=== PATIENT | female | born 1955 | race Asian ===

== ENCOUNTER 2023-04-06 13:22 | Inpatient (IN) | payer BC, MEDICAID, OTHER ==
[~2023-04-06] VITALS: Ht 160 cm; Wt 121.1 kg
[2023-04-06 13:35] VITALS: BP_SYST 139; PULSE 70; RESP 20; TEMP 98.6; O2SAT 95
[2023-04-06] MEDS ORDERED: predniSONE 20 MG TABLET PO ONE (14:00)
[2023-04-06] MEDS ORDERED: IPRATROPIUM/ALBUTEROL SULFATE 3 ML AMPUL.NEB (DUONEB) INH ONE (14:00)
[2023-04-06 14:20] LABS: ABG O2 SAT% ESTIMATE 96.9 % (94.0-100.0); BLOOD GAS BASE EXCESS 3.7 mmol/L (-3.0-3.0); BLOOD GAS PH 7.316 (7.350-7.450); BLOOD GAS PO2 100.6 mmHg (75.0-100.0)
[2023-04-06 14:50] LABS: BASOPHILS % (AUTO) 0.7 % (0.0-2.0); EOSINOPHILS # (AUTO) 0.2 K/uL (0.0-0.4); EOSINOPHILS % (AUTO) 5.1 % (0.0-4.0); HEMATOCRIT 34.4 % (36-48); HEMOGLOBIN 10.6 g/dL (12.0-16.0); LYMPHOCYTES # (AUTO) 0.8 K/uL (1.0-5.5); LYMPHOCYTES % (AUTO) 18.5 % (20.5-51.5); MEAN CORPUSCULAR HEMOGLOBIN 30 pg (27-31); MEAN CORPUSCULAR HGB CONC 31 % (32-36); MEAN CORPUSCULAR VOLUME 98 fL (79.0-98.0); MONOCYTES # (AUTO) 0.3 K/uL (0.0-1.0); MONOCYTES % (AUTO) 6.6 % (1.7-9.3); NEUTROPHILS # (AUTO) 3.1 K/uL (1.8-7.7); NEUTROPHILS % (AUTO) 69.1 % (40.0-70.0); PLATELET COUNT (AUTO) 195 K/uL (130-430); RED CELL DISTRIBUTION WIDTH 16.1 % (9.0-15.0); WHITE BLOOD COUNT (AUTO) 4.5 K/uL (4.8-10.8)
[2023-04-06 14:56] LABS: ALLEN'S TEST POSITIVE (P); BLOOD GAS PCO2 64.1 mmHg (35.0-45.0)
[2023-04-06 14:58] LABS: ALANINE AMINOTRANSFERASE 11 U/L (12-78); ALBUMIN 3.1 g/dL (3.4-4.8); ANION GAP 4 (5-15); ASPARTATE AMINOTRANSFERASE 14 U/L (10-37); CALCIUM 8.8 mg/dL (8.4-11.0); CARBON DIOXIDE 31 mmol/L (23-29); CHLORIDE 107 mmol/L (98-107); GFR AFRICAN AMERICAN 91 mL/min (>90); GLUCOSE 96 mg/dL (74-106); POTASSIUM 3.5 mmol/L (3.5-5.1); SODIUM SERUM 142 mmol/L (136-145); TOTAL BILIRUBIN 0.4 mg/dL (0.0-1.0); TOTAL PROTEIN, SERUM 6.2 g/dL (6.4-8.3); UREA NITROGEN, BLOOD 7 mg/dL (8-21)
[2023-04-06 15:01] LABS: BILIRUBIN,DIRECT 0.1 mg/dL (0.0-0.3)
[2023-04-06 15:08] LABS: GFR NON AFRICAN-AMERICAN 76 mL/min (>90)
[2023-04-06] MEDS ORDERED: AZITHROMYCIN 500 MG in NS 250 ML IV ONE (15:45)
[2023-04-06] MEDS ORDERED: cefTRIAXone 1 GM in D5W 50 ML IV ONE (15:45)
[2023-04-06 16:06] LABS: INFLUENZA TYPE A Negative (NEGATIVE); INFLUENZA TYPE B NEGATIVE (NEGATIVE)
[2023-04-06] MEDS ORDERED: cefTRIAXone 1 GM VIAL ONE (16:39)
[2023-04-06] MEDS ORDERED: AZITHROMYCIN 500 MG/VIAL (ZITHROMAX) IV ONE (17:01)
[2023-04-06] MEDS ORDERED: ALBMDI INH (17:30)
[2023-04-06] MEDS ORDERED: BECL10.62 INH (17:30)
[2023-04-06] MEDS ORDERED: LEVO200C2 PO (17:36)
[2023-04-06] MEDS ORDERED: ZOLPIDEM TARTRATE 5 MG TABLET PO PRN (18:30)
[2023-04-06] MEDS ORDERED: MORPHINE 2 MG/ML INJ. SYRINGE IVP PRN ×2 (18:30)
[2023-04-06] MEDS ORDERED: ONDANSETRON HCL 4 MG/2 ML VIAL IVP PRN (18:30)
[2023-04-06] MEDS ORDERED: LORazepam 2 MG/ML VIAL IVP PRN (18:30)
[2023-04-06] MEDS ORDERED: MAGNESIUM SULFATE 50 ML IV PRN (18:30)
[2023-04-06] MEDS ORDERED: DOCUSATE SODIUM 100 MG CAPSULE PO PRN (18:30)
[2023-04-06] MEDS ORDERED: ACETAMINOPHEN 500 MG TABLET PO PRN ×3 (18:30)
[2023-04-06] MEDS ORDERED: MUPIROCIN 2% TOPICAL OINTMENT 22 GM NS PRN (18:30)
[2023-04-06] MEDS ORDERED: POTASSIUM CHLORIDE 20 MEQ TABLET.ER PO PRN (18:30)
[2023-04-06] MEDS: BUDESONIDE 0.5 MG/2 ML AMPUL.NEB INH SCH (19:57)
[2023-04-06] MEDS: METHYLPREDNISOLONE SOD SUCC 40 MG/ML VIAL IVP SCH (21:44)
[2023-04-06 22:27] VITALS: BP_SYST 98; PULSE 64; RESP 20; O2SAT 97
[2023-04-06 22:28] VITALS: O2SAT 97
[2023-04-06 23:00] VITALS: BP_SYST 98; PULSE 64; RESP 20
[2023-04-06] MEDS: HEPARIN SODIUM,PORCINE 5,000 UNITS/ML VIAL SUBCUT SCH (23:06)
[2023-04-07] VITALS (8 sets, daily range): BP systolic 99–127; PULSE 71–77; RESP 18–20; TEMP 98.1–98.6; O2SAT 91–98
[2023-04-07] MEDS: IPRATROPIUM/ALBUTEROL SULFATE 3 ML AMPUL.NEB (DUONEB) INH PRN ×2 (03:54→17:42)
[2023-04-07 05:57] LABS: BASOPHILS % (AUTO) 0.1 % (0.0-2.0); HEMOGLOBIN 11.1 g/dL (12.0-16.0); LYMPHOCYTES # (AUTO) 0.3 K/uL (1.0-5.5); MEAN CORPUSCULAR HEMOGLOBIN 31 pg (27-31); MEAN CORPUSCULAR HGB CONC 31 % (32-36); MEAN CORPUSCULAR VOLUME 99 fL (79.0-98.0); MONOCYTES % (AUTO) 0.9 % (1.7-9.3); NEUTROPHILS # (AUTO) 3.2 K/uL (1.8-7.7); PLATELET COUNT (AUTO) 207 K/uL (130-430); RED BLOOD CELL COUNT(AUTO) 3.63 MIL/uL (4.2-6.2); RED CELL DISTRIBUTION WIDTH 16.1 % (9.0-15.0); WHITE BLOOD COUNT (AUTO) 3.6 K/uL (4.8-10.8)
[2023-04-07 06:34] LABS: CALCIUM 8.9 mg/dL (8.4-11.0); CREATININE 0.64 mg/dL (0.55-1.30); POTASSIUM 4.3 mmol/L (3.5-5.1)
[2023-04-07] MEDS: LEVOTHYROXINE SODIUM 0.1 MG TABLET PO SCH (07:14)
[2023-04-07] MEDS: BUDESONIDE 0.5 MG/2 ML AMPUL.NEB INH SCH ×2 (07:35→19:55)
[2023-04-07] MEDS ORDERED: LEVOTHYROXINE SODIUM PO SCH (09:00)
[2023-04-07] MEDS: METHYLPREDNISOLONE SOD SUCC 40 MG/ML VIAL IVP SCH ×2 (09:42→20:38)
[2023-04-07] MEDS: HEPARIN SODIUM,PORCINE 5,000 UNITS/ML VIAL SUBCUT SCH ×2 (09:48→20:35)
[2023-04-08] VITALS: BP_SYST 118; PULSE 70; RESP 18; TEMP 98.7; O2SAT 98
[2023-04-08 02:36] VITALS: O2SAT 98
[2023-04-08 05:11] LABS: BASOPHILS % (AUTO) 0.7 % (0.0-2.0); HEMATOCRIT 36.1 % (36-48); HEMOGLOBIN 11.2 g/dL (12.0-16.0); LYMPHOCYTES # (AUTO) 0.3 K/uL (1.0-5.5); LYMPHOCYTES % (AUTO) 4.6 % (20.5-51.5); MEAN CORPUSCULAR HEMOGLOBIN 31 pg (27-31); MEAN CORPUSCULAR HGB CONC 31 % (32-36); MEAN CORPUSCULAR VOLUME 99 fL (79.0-98.0); MONOCYTES # (AUTO) 0.2 K/uL (0.0-1.0); MONOCYTES % (AUTO) 2.5 % (1.7-9.3); NEUTROPHILS # (AUTO) 5.6 K/uL (1.8-7.7); NEUTROPHILS % (AUTO) 92.2 % (40.0-70.0); PLATELET COUNT (AUTO) 203 K/uL (130-430); RED BLOOD CELL COUNT(AUTO) 3.67 MIL/uL (4.2-6.2); RED CELL DISTRIBUTION WIDTH 15.8 % (9.0-15.0); WHITE BLOOD COUNT (AUTO) 6.1 K/uL (4.8-10.8)
[2023-04-08 05:45] LABS: CALCIUM 9.3 mg/dL (8.4-11.0); CREATININE 0.77 mg/dL (0.55-1.30); POTASSIUM 4.3 mmol/L (3.5-5.1)
[2023-04-08] MEDS: LEVOTHYROXINE SODIUM 0.1 MG TABLET PO SCH (06:09)
[2023-04-08] MEDS: BUDESONIDE 0.5 MG/2 ML AMPUL.NEB INH SCH (07:09)
[2023-04-08 07:10] VITALS: O2SAT 96
[2023-04-08 08:15] VITALS: O2SAT 95
[2023-04-08] MEDS: HEPARIN SODIUM,PORCINE 5,000 UNITS/ML VIAL SUBCUT SCH (09:00)
[2023-04-08] MEDS: METHYLPREDNISOLONE SOD SUCC 40 MG/ML VIAL IVP SCH (09:00)
[2023-04-08 15:55] VITALS: BP_SYST 139; PULSE 80; RESP 18; TEMP 98.5; O2SAT 95
== END 2023-04-08 18:30 | disposition home health service (06) | DRG 140 ==
LOC: SED 13:22 → STU 18:13 → SMU 04-07 16:57
PROVIDERS: ADMIT General Practice; ATTEND General Practice
DX: J44.1 Chronic obstructive pulmonary disease with (acute) exacerbation (principal); J96.02 Acute respiratory failure with hypercapnia; E44.1 Mild protein-calorie malnutrition; E66.2 Morbid (severe) obesity with alveolar hypoventilation; Z20.822 Contact with and (suspected) exposure to COVID-19; E03.9 Hypothyroidism, unspecified; Z68.42 Body mass index [BMI] 45.0-49.9, adult; Z88.6 Allergy status to analgesic agent; Z88.8 Allergy status to other drugs, medicaments and biological substances; Z79.899 Other long term (current) drug therapy; Z98.891 History of uterine scar from previous surgery
CPT/HCPCS: 36415; 36600; 71045; 80048; 80076; 82803; 83037; 83605; 83735; 83880; 84484; 85025; 87040; 87081; 93005; 94640; 94760; 96365; 99285; G0378; J0456; J0696; J1030; J1644; J7512; J7626